=== PATIENT | male | born 1945 | race Caucasian/White ===

== ENCOUNTER 2017-12-13 10:26 | Inpatient (IN) ==
[2017-12-13] MEDS ORDERED: 0.9 % Sodium Chloride 1,000 ML IVC ONE (11:01)
[2017-12-13] MEDS ORDERED: Ondansetron 4 MG/2 ML VIAL IVP ONE (11:01)
[2017-12-13] MEDS ORDERED: Piperacillin/Tazobactam 3.375 GM in 0.9 % Sodium Chloride Mini Bag 100 ML IVPB ONE (11:01)
[2017-12-13] MEDS ORDERED: *HR* FentaNYL (PF) 100 MCG/2 ML VIAL IVP ONE (11:02)
[2017-12-13] MEDS ORDERED: Isovue-370 500 ML INFUS..BTL IV ONE (11:03)
[2017-12-13 11:35] LABS: Basophils # 0.1 K/mcL (0.0-0.2); Basophils % 0.3 %; Eosinophils # 0.1 K/mcL (0.0-0.6); Eosinophils % 0.6 %; Hematocrit 37.6 % (37.5-50.1); Hemoglobin 12.7 g/dL (12.9-16.9); Immature Granulocytes % 0.5 % (0-4); Lymphocytes # 1.5 K/mcL (0.6-4.6); Lymphocytes % 7.4 %; Mean Corpuscular HGB Conc 33.8 g/dL (31.6-35.5); Mean Corpuscular Hemoglobin 31.7 pg (28.0-33.3); Mean Corpuscular Volume 93.8 fL (83.0-100.0); Mean Platelet Volume 9.5 fL (9.4-12.4); Monocytes # 1.8 K/mcL (0.0-1.3); Monocytes % 9.1 %; Neutrophils # 16.5 K/mcL (1.6-8.9); Platelet Count 622 K/mcL (140-400); Red Blood Count 4.01 M/mcL (4.19-5.50); Red Cell Distribution Width 15.8 % (11.5-14.5); Segmented Neutrophils % 82.1 %
[2017-12-13 11:42] LABS: Prothrombin Time 11.4 Seconds (9.4-12.1)
[2017-12-13 11:45] LABS: Activated Partial Thrombo Time 26.8 Seconds (26.0-36.0)
[2017-12-13 11:49] LABS: Alanine Aminotransferase 22 Units/L (7-52); Albumin 2.8 g/dL (3.5-5.7); Albumin/Globulin Ratio 1.3 (1.1-2.2); Alkaline Phosphatase 60 Units/L (34-104); Aspartate Amino Transferase 16 Units/L (13-39); BUN/Creatinine Ratio 12 (6-26); Bilirubin,Direct 0.3 mg/dL (0.0-0.2); Bilirubin,Indirect 0.2 mg/dL (0.0-1.2); Bilirubin,Total 0.5 mg/dL (0.3-1.0); Blood Urea Nitrogen 16 mg/dL (8-23); Calcium 8.4 mg/dL (8.6-10.3); Carbon Dioxide 21 mEq/L (23-29); Chloride 106 mEq/L (98-107); Globulin 2.1 g/dL (2.4-3.5); Glucose 87 mg/dL (70-105); Lipase 46 Units/L (11-82); Osmolality,Calculated 277 (280-300); Potassium 3.9 mEq/L (3.5-5.1); Sodium 133 mEq/L (136-145); Total Protein 4.9 g/dL (6.4-8.9); eGFR For African Americans > 60 (> 60); eGFR For Non-African Americans 51 (> 60)
[2017-12-13 12:22] LABS: Hepatitis B Core IgM Nonreactive (Nonreactive); Hepatitis B Surface Antigen Nonreactive (Nonreactive)
--- NOTE | 2017-12-13 12:25 | Emergency Department Note ---
Disposition Clinical Impression: Colitis Diarrhea Qualifiers: Diarrhea type: unspecified type Qualified Code(s): R19.7 - Diarrhea, unspecified Disposition: Admitted As Inpatient Condition: Fair Forms: ED Satisfaction Letter Time of Disposition: 14:13 General Adult HPI - General Chief complaint: ED Nausea/Vomiting/Diarrhea Stated complaint: "L side abd pain,diarrhea" Time Seen by Provider: 12/13/17 10:33 Source: patient Mode of arrival: ambulatory Limitations: no limitations Nursing Notes Reviewed: Yes Vital Signs Reviewed: Yes - History of Present Illness HPI Narrative: Patient presents emergency room for evaluation of abdominal pain. He was seen 3 weeks ago at an outside facility and diagnosed with colitis. Since then he was treated with antibiotics and then had no follow-up. His pain has been progressively getting worse and his symptoms of been getting worse. He has had uncontrolled diarrhea that is watery and fall smelling. He denies any chest pain shortness of breath headache vision changes nausea or vomiting. Denies any fevers or chills. Denies any trauma or injury since the events prior to. She did complete the antibiotic regiment without any difficulty Onset (ago): week(s) Location: abdomen Radiation: non-radiation Pain Severity: severe Pain Scale: 10 Quality: stabbing, aching Consistency: constant Improves with: nothing Worsens with: nothing Associated symptoms: Reports: loss of appetite, malaise. Denies: chest pain, cough, diaphoresis, fever/chills, headaches, nausea/vomiting, rash, seizure, shortness of breath Treatments Prior to Arrival: none - Related Data Home Medications Medication Instructions Recorded Confirmed Atorvastatin Calcium [Lipitor] 80 mg PO HS 12/13/17 12/13/17 Citalopram Hydrobromide [Celexa] 40 mg PO DAILY 12/13/17 12/13/17 Diphenoxylate/Atropine [Lomotil 1 tab PO QID PRN 12/13/17 12/13/17 2.5 mg/0.025 mg] Docusate Sodium [Dok] 100 mg PO BID 12/13/17 12/13/17 Finasteride [Proscar] 5 mg PO DAILY 12/13/17 12/13/17 Levothyroxine [Synthroid] 175 mcg PO DAILY 12/13/17 12/13/17 Lisinopril [Zestril] 20 mg PO DAILY 12/13/17 12/13/17 Tamsulosin HCl [Flomax] 0.4 mg PO DAILY 12/13/17 12/13/17 Allergies Allergy/AdvReac Type Severity Reaction Status Date / Time levofloxacin [From Levaquin] Allergy See Verified 12/13/17 10:31 Comments All systems ED: reviewed and negative except as stated. Review of Systems: As Per HPI Constitutional: Denies: fever, chills, weakness Cardiovascular: Denies: chest pain, palpitations, dyspnea on exertion, orthopnea , edema Respiratory: Denies: cough, dyspnea, wheezes Gastrointestinal: Reports: abdominal pain, diarrhea. Denies: nausea, vomiting, constipation Genitourinary: Denies: urgency, dysuria Musculoskeletal: Denies: back pain, neck pain Integumentary: Denies: rash Neurological: Denies: headache Past Medical History - Past Medical History Attestation: Yes The following information was validated with the patient. Source: patient Medical history: Reports: diabetes, hepatitis, hyperlipidemia, hypertension, renal disease, thyroid disease Surgical history: Reports: thyroidectomy Psychiatric history: Reports: anxiety - Social History Smoking Status: Current every day smoker Smokeless Tobacco Status: No Alcohol use: Reports: occasionally Drug use: Reports: marijuana Physical Exam - General Limitations: no limitations General appearance: alert, in no apparent distress - Head Head exam: atraumatic, normocephalic, normal inspection - Eye Eye exam: Present: normal appearance, PERRL, EOMI - ENT ENT exam: normal exam, normal oropharynx, mucous membranes moist - Neck Neck exam: Present: normal inspection, full ROM, trachea midline - Respiratory Respiratory exam: Present: normal lung sounds bilaterally - Cardiovascular Cardiovascular exam: Present: regular rate, normal rhythm, normal heart sounds - Abdominal Exam Abdominal exam: Present: soft, tenderness, guarding, normal bowel sounds. Absent: distention, rebound, rigidity, Koo's sign, Rovsing's sign, tenderness at McBurney's Point - Extremities Exam Extremities exam: Present: normal inspection, full ROM, normal capillary refill. Absent: tenderness - Back Exam Back exam: Present: normal inspection - Neurological Exam Neurological exam: Present: alert, oriented X3, CN II-XII intact, normal gait - Skin Skin exam: Present: warm, dry, intact, normal color Course Course Narrative: Patient seen and examined the time of arrival. See history of present illness. 72-year-old male presents emergency room for evaluation of abdominal pain. Patient was seen and evaluated outside facility. Patient had CT imaging and diagnosis of colitis completed there. Since going home is had persistent symptoms including abdominal pain diarrhea profuse tenderness in his abdomen he denies any fevers or chills chest pain shortness of breath headache vision changes or nausea vomiting at this point. Patient has had that is widely diarrhea. Denies any other issues at least at this time. He did complete antibiotic regimen for the outside facility. On presentation here he is alert he is oriented he speaks in full sentences but he does have discomfort and pain in his abdomen. His lungs are clear his heart is regular his abdomen is soft but is tender diffusely worsened left lower quadrant than in the right. He has no rashes or lesions noted at this time. He has no tenderness in the suprapubic region or down into his lower groin or abdomen. Patient was ambulatory coming into the emergency room but does have persistent pain. He has no signs of pitting edema or cellulitis. Patient is concerning for intra- abdominal pathology including diverticular disease, persistent colitis, inflammatory colitis, bowel obstruction or potential perforation. Patient will have chest x-ray EKG labs including CBC chemistry liver function lipase as well as first dose of fluids and antibiotics to be given here. Disposition pending the full workup treatment course evaluation and CT imaging of the abdomen. Clinical evaluation stabilization and evaluated disposition will be determined. - Reevaluation(s) Reevaluation #1: Labs do show significantly elevated white blood cell count. His lactic acid is normal. His renal function is at baseline. He was given fluids here at this time. Antibiotics were given. Disposition pending the full treatment course and symptomatic control. Platelets were 622. Patient does not have a history of splenectomy that we know of at this time. Time: 12:35 Reevaluation #2: Patient's family as well as the patient was informed of the findings discussed the presentation symptoms. Patient has failed outpatient management of colitis. Will be admitted at this time for subhepatic control and evaluation antibiotic regimen. C. difficile culture was sent at this time. The hospitalist Dr. Chaudhry and I reviewed the patient's symptoms presentation history and other recommendations this time. Patient will be admitted for definitive management and evaluation what appears to be persistent inflammatory colitis of unknown etiology. Time: 14:12 Vital Signs Temperature 97.5 F L 12/13/17 10:27 Pulse Rate 67 12/13/17 10:27 Respiratory Rate 12/13/17 10:27 Blood Pressure 112/71 12/13/17 10:27 O2 Sat by Pulse Oximetry 100 12/13/17 10:27 Temperature 97.5 F L 12/13/17 10:41 Pulse Rate 12/13/17 10:41 Respiratory Rate 12/13/17 10:41 Blood Pressure 112/71 12/13/17 10:41 O2 Sat by Pulse Oximetry 12/13/17 10:41 Oxygen Delivery Oxygen Delivery Room Air Medical Decision Making - MDM Narrative Medical decision making narrative: Abdominal pain, diarrhea - Medical Records Medical records reviewed: Yes I reviewed the patient's medical records. - Lab Data Lab results reviewed: Yes I reviewed the patient's lab results. Result diagrams: 12/13/17 11:17 12/13/17 11:17 Lab Results 12/13/17 12/13/17 12/13/17 Range/Units 11:17 11:17 11:17 WBC (4.3-11.1) K/mcL RBC (4.19-5.50) M/mcL Hgb (12.9-16.9) g/dL Hct (37.5-50.1) % MCV (83.0-100.0) fL MCH (28.0-33.3) pg MCHC (31.6-35.5) g/dL RDW (11.5-14.5) % Plt Count (140-400) K/mcL MPV (9.4-12.4) fL Immature Gran % (0-4) % Seg Neutrophils % % Lymphocytes % % Monocytes % % Eosinophils % % Basophils % % Neutrophils # (1.6-8.9) K/mcL Lymphocytes # (0.6-4.6) K/mcL Monocytes # (0.0-1.3) K/mcL Eosinophils # (0.0-0.6) K/mcL Basophils # (0.0-0.2) K/mcL PT 11.4 (9.4-12.1) Seconds INR 1.0 APTT 26.8 (26.0-36.0) Seconds Sodium (136-145) mEq/L Potassium (3.5-5.1) mEq/L Chloride (98-107) mEq/L Carbon Dioxide (23-29) mEq/L BUN (8-23) mg/dL Creatinine (0.70-1.30) mg/dL Est GFR ( Amer) (> 60) Est GFR (Non-Af Amer) (> 60) BUN/Creatinine Ratio (6-26) Glucose (70-105) mg/dL Calculated Osmolality (280-300) Lactic Acid 1.4 (0.5-2.2) mmol/L Calcium (8.6-10.3) mg/dL Total Bilirubin (0.3-1.0) mg/dL Direct Bilirubin (0.0-0.2) mg/dL Indirect Bilirubin (0.0-1.2) mg/dL AST (13-39) Units/L ALT (7-52) Units/L Alkaline Phosphatase (34-104) Units/L Troponin I < 0.03 (< 0.04) ng/mL Serum Total Protein (6.4-8.9) g/dL Albumin (3.5-5.7) g/dL Globulin (2.4-3.5) g/dL Albumin/Globulin Ratio (1.1-2.2) Lipase (11-82) Units/L Urine Color (Yellow) Urine Clarity (Clear) Urine pH (5.0-8.0) pH Units Ur Specific [place] (1.010-1.025) Urine Protein (Neg-Trace) mg/dL Urine Glucose (UA) (Normal) mg/dL Urine Ketones (Negative) mg/dL Urine Blood (Negative) Urine Nitrite (Negative) Urine Bilirubin (Negative) Urine Urobilinogen (Normal) mg/dL Ur Leukocyte Esterase (Negative) Urine Microscopic RBC (0-3) per hpf Urine Microscopic WBC (0-3) per hpf Ur Squamous Epith Cells (None-Few) per lpf Urine Bacteria (None-Few) per hpf Hyaline Casts (None-Few) per lpf Ur Culture Indicated? (NO) Hep Bs Antigen (Nonreactive) Hep B Core IgM Ab (Nonreactive) 12/13/17 12/13/17 12/13/17 Range/Units 11:17 11:17 11:17 WBC 20.2 H (4.3-11.1) K/mcL RBC 4.01 L (4.19-5.50) M/mcL Hgb 12.7 L (12.9-16.9) g/dL Hct 37.6 (37.5-50.1) % MCV 93.8 (83.0-100.0) fL MCH 31.7 (28.0-33.3) pg MCHC 33.8 (31.6-35.5) g/dL RDW 15.8 H (11.5-14.5) % Plt Count 622 H (140-400) K/mcL MPV 9.5 (9.4-12.4) fL Immature Gran % 0.5 (0-4) % Seg Neutrophils % 82.1 % Lymphocytes % 7.4 % Monocytes % 9.1 % Eosinophils % 0.6 % Basophils % 0.3 % Neutrophils # 16.5 H (1.6-8.9) K/mcL Lymphocytes # 1.5 (0.6-4.6) K/mcL Monocytes # 1.8 H (0.0-1.3) K/mcL Eosinophils # 0.1 (0.0-0.6) K/mcL Basophils # 0.1 (0.0-0.2) K/mcL PT (9.4-12.1) Seconds INR APTT (26.0-36.0) Seconds Sodium 133 L (136-145) mEq/L Potassium 3.9 (3.5-5.1) mEq/L Chloride 106 (98-107) mEq/L Carbon Dioxide 21 L (23-29) mEq/L BUN 16 (8-23) mg/dL Creatinine 1.37 H (0.70-1.30) mg/dL Est GFR ( Amer) > 60 (> 60) Est GFR (Non-Af Amer) 51 L (> 60) BUN/Creatinine Ratio 12 (6-26) Glucose 87 (70-105) mg/dL Calculated Osmolality 277 L (280-300) Lactic Acid (0.5-2.2) mmol/L Calcium 8.4 L (8.6-10.3) mg/dL Total Bilirubin 0.5 (0.3-1.0) mg/dL Direct Bilirubin 0.3 H (0.0-0.2) mg/dL Indirect Bilirubin 0.2 (0.0-1.2) mg/dL AST 16 (13-39) Units/L ALT 22 (7-52) Units/L Alkaline Phosphatase 60 (34-104) Units/L Troponin I (< 0.04) ng/mL Serum Total Protein 4.9 L (6.4-8.9) g/dL Albumin 2.8 L (3.5-5.7) g/dL Globulin 2.1 L (2.4-3.5) g/dL Albumin/Globulin Ratio 1.3 (1.1-2.2) Lipase 46 (11-82) Units/L Urine Color (Yellow) Urine Clarity (Clear) Urine pH (5.0-8.0) pH Units Ur Specific [place] (1.010-1.025) Urine Protein (Neg-Trace) mg/dL Urine Glucose (UA) (Normal) mg/dL Urine Ketones (Negative) mg/dL Urine Blood (Negative) Urine Nitrite (Negative) Urine Bilirubin (Negative) Urine Urobilinogen (Normal) mg/dL Ur Leukocyte Esterase (Negative) Urine Microscopic RBC (0-3) per hpf Urine Microscopic WBC (0-3) per hpf Ur Squamous Epith Cells (None-Few) per lpf Urine Bacteria (None-Few) per hpf Hyaline Casts (None-Few) per lpf Ur Culture Indicated? (NO) Hep Bs Antigen Nonreactive (Nonreactive) Hep B Core IgM Ab Nonreactive (Nonreactive) 12/13/17 Range/Units 13:00 WBC (4.3-11.1) K/mcL RBC (4.19-5.50) M/mcL Hgb (12.9-16.9) g/dL Hct (37.5-50.1) % MCV (83.0-100.0) fL MCH (28.0-33.3) pg MCHC (31.6-35.5) g/dL RDW (11.5-14.5) % Plt Count (140-400) K/mcL MPV (9.4-12.4) fL Immature Gran % (0-4) % Seg Neutrophils % % Lymphocytes % % Monocytes % % Eosinophils % % Basophils % % Neutrophils # (1.6-8.9) K/mcL Lymphocytes # (0.6-4.6) K/mcL Monocytes # (0.0-1.3) K/mcL Eosinophils # (0.0-0.6) K/mcL Basophils # (0.0-0.2) K/mcL PT (9.4-12.1) Seconds INR APTT (26.0-36.0) Seconds Sodium (136-145) mEq/L Potassium (3.5-5.1) mEq/L Chloride (98-107) mEq/L Carbon Dioxide (23-29) mEq/L BUN (8-23) mg/dL Creatinine (0.70-1.30) mg/dL Est GFR ( Amer) (> 60) Est GFR (Non-Af Amer) (> 60) BUN/Creatinine Ratio (6-26) Glucose (70-105) mg/dL Calculated Osmolality (280-300) Lactic Acid (0.5-2.2) mmol/L Calcium (8.6-10.3) mg/dL Total Bilirubin (0.3-1.0) mg/dL Direct Bilirubin (0.0-0.2) mg/dL Indirect Bilirubin (0.0-1.2) mg/dL AST (13-39) Units/L ALT (7-52) Units/L Alkaline Phosphatase (34-104) Units/L Troponin I (< 0.04) ng/mL Serum Total Protein (6.4-8.9) g/dL Albumin (3.5-5.7) g/dL Globulin (2.4-3.5) g/dL Albumin/Globulin Ratio (1.1-2.2) Lipase (11-82) Units/L Urine Color Yellow (Yellow) Urine Clarity Clear (Clear) Urine pH 6.0 (5.0-8.0) pH Units Ur Specific [place] 1.022 (1.010-1.025) Urine Protein Trace (Neg-Trace) mg/dL Urine Glucose (UA) Normal (Normal) mg/dL Urine Ketones Negative (Negative) mg/dL Urine Blood Negative (Negative) Urine Nitrite Negative (Negative) Urine Bilirubin Negative (Negative) Urine Urobilinogen Normal (Normal) mg/dL Ur Leukocyte Esterase Negative (Negative) Urine Microscopic RBC 3-5 H (0-3) per hpf Urine Microscopic WBC 0-3 (0-3) per hpf Ur Squamous Epith Cells Few (None-Few) per lpf Urine Bacteria None Seen (None-Few) per hpf Hyaline Casts None Seen (None-Few) per lpf Ur Culture Indicated? NO (NO) Hep Bs Antigen (Nonreactive) Hep B Core IgM Ab (Nonreactive) - Radiology Data Radiology results reviewed: Yes I reviewed the patient's radiology results. Chest x-ray does not show any acute pathology based on evaluation. ET scan confirms inflammatory colitis of unknown etiology with no other acute intra-abdominal pathology. - EKG Data EKG #1 EKG attestation: Yes I reviewed and interpreted this EKG. EKG results narrative: EKG shows sinus rhythm. Bradycardic rate at ventricular rate of 59. MN interval 142. QRS duration 103. QTC of 424. No acute signs of ST segment elevation or abnormality. No previous EKG for evaluation of this time. No acute signs of WPW or Brugada syndrome.
[2017-12-13 13:10] LABS: Bilirubin,Urine Negative (Negative); Blood,Urine Negative (Negative); Clarity,Urine Clear (Clear); Color,Urine Yellow (Yellow); Glucose,Urine (UA) Normal (Normal); Ketones,Urine Negative (Negative); Leukocyte Esterase,Urine Negative (Negative); Nitrite,Urine Negative (Negative); Protein,Urine Trace mg/dL (Neg-Trace); Specific Gravity,Urine 1.022 (1.010-1.025); Urobilinogen,Urine Normal (Normal)
[2017-12-13 13:15] LABS: Bacteria,Urine None Seen per hpf (None-Few); Hyaline Casts,Urine None Seen per lpf (None-Few); Squamous Epithelial Cell,Urine Few per lpf (None-Few); WBC,Urine 0-3 per hpf (0-3)
[2017-12-13] MEDS: 0.9 % Sodium Chloride 1,000 ML IVC SCH (16:04)
[2017-12-13] MEDS ORDERED: Naloxone 0.4 MG/ML INJ IVP PRN (16:06)
[2017-12-13] MEDS: Vancomycin Oral Soln 125 MG/2.5 ML UDC PO SCH ×2 (16:56→20:10)
--- NOTE | 2017-12-13 17:31 | Electrocardiograph Report ---
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
--- NOTE | 2017-12-13 18:17 | Internal Med History&Physical ---
Date of Encounter: 12/13/17 Time of Encounter: 14:30 Internal Medicine - H&P: HPI Chief complaint: diarrhea Admitted From: Home Plans for Post Hospital Care: Home History of present illness: Mr. Lennon is a 72 year old male with PMHx of DM, HTN, HLD, BPH, CKD, presented to the ED with unresolving diarrhea. It first started back in 11/23 after which he was seen in [facility] on 11/28. There is no report available from that visit but he states that he had CT scan done which showed colitis and was discharged home on PO Bactrim/flagyl. Prior to the ED visit, he had collected a stool testing kit from his PCP which he used on 12/07 after he finished a course of abx. He was informed that the test results were unremarkable but diarrhea did not resolve hence decided to come to the ED. No blood in diarrhea or mucus. Associated with intermittent, LLQ pain. Non-radiating, sharp in nature, no aggravating/relieving factors. Denies fever/chills, N/V, dysuria, or hematuria. No travel history. Initial labs showed leukocytosis. Cr was around his baseline. Lipase normal, urinalysis -ve for LE, nitrite. CT scan showed stable colitis. He was given IV zosyn and fentanyl then admitted for further management. Past Med Surg Social Fam HX - Past Medical History Medical history: diabetes, hepatitis, hyperlipidemia, hypertension, renal disease, thyroid disease Additional medical history: BPH, anxiety, depression Psychiatric history: anxiety - Past Surgical History Surgical History: thyroidectomy Additional surgical history: right knee scope. Diverticulosis diagnosed with recent colonoscopy - Social History Smoking Status: Current every day smoker Packs per day: 1 Smokeless Tobacco Status: No Alcohol use: occasionally Drug use: marijuana Current living situation: Home - Independent Activity Level: Independent ambulation Recent Out of Country Travel Within the Last 8 Weeks: No - Family History Mother Hx Family GI Disorders: No Father Hx Family GI Disorders: No Internal Medicine - H&P: Meds Atorvastatin Calcium [Lipitor] 80 mg PO HS 12/13/17 [History] Citalopram Hydrobromide [Celexa] 40 mg PO DAILY 12/13/17 [History] Diphenoxylate/Atropine [Lomotil 2.5 mg/0.025 mg] 1 tab PO QID PRN 12/13/17 [ History] Docusate Sodium [Dok] 100 mg PO BID 12/13/17 [History] Finasteride [Proscar] 5 mg PO DAILY 12/13/17 [History] Levothyroxine [Synthroid] 175 mcg PO DAILY 12/13/17 [History] Lisinopril [Zestril] 20 mg PO DAILY 12/13/17 [History] Tamsulosin HCl [Flomax] 0.4 mg PO DAILY 12/13/17 [History] 3 Allergy/AdvReac Type Severity Reaction Status Date / Time levofloxacin [From Levaquin] Allergy See Verified 12/13/17 10:31 Comments All Systems PM: A 10-system review of systems was performed and is negative for pertinent findings except as documented above in the HPI. - Constitutional Vitals: Temp Pulse Resp BP Pulse Ox 97.5 F L 62 16 125/66 100 12/13/17 15:36 12/13/17 15:36 12/13/17 15:36 12/13/17 15:36 12/13/17 15:36 Exam: General: Alert and oriented HEENT:EOM, pupils equal, round, and reactive. Cardiovascular:Normal S1 & S2, no murmurs or gallops. No JVD. Pulse regular. Lungs:Normal breath sounds, no wheezes or crackles. Abdomen:Soft, mild LLQ tenderness without rigidity/rebound tenderness. Bowel sounds active Extremities:No deformity, no edema or tenderness, no joint swelling. Neurological:Normal cognition and motor skills. Skin:Normal color, no rash, no lesions. Pulses:Carotid and radial pulses normal +2. Rest of the physical exam is non-contributory Internal Med - H&P Results - Labs CBC & Chem 7: 12/13/17 11:17 12/13/17 11:17 - EKG Data -: EKG Interpreted by Myself EKG shows normal: sinus rhythm - Diagnostic Studies CT scan - abdomen Additional comments: Stable colitis - VTE Reasons for not Prescribing Prophylaxis: Treatment not Indicated - Low risk for VTE - Assessment and plan (1) C. difficile colitis Current Visit: Yes Status: Acute Assessment and plan: Discussed the previous stool test dated 12/07 with microbiology -> The interpretation is that C diff Tox B gene was positive which was verified on reflex C diff Tox A/B PCR Start PO Vanc 125mg QID clear liquid diet today -> advance as tolerated Will try tramadol for pain management as pt is not vomiting d/c IV Zosyn (2) CKD (chronic kidney disease) stage 3, GFR 30-59 ml/min Current Visit: Yes Status: Acute Assessment and plan: Cr at his baseline Received IV contrast for CT abdo/pelvis today Will continue IVF for today (3) Hypertension Current Visit: Yes Status: Chronic Assessment and plan: continue lisinopril Qualifiers: Hypertension type: essential hypertension Qualified Code(s): I10 - Essential (primary) hypertension (4) BPH (benign prostatic hyperplasia) Current Visit: Yes Status: Acute Assessment and plan: Continue proscar and flomax Qualifiers: Lower urinary tract symptom presence: unspecified whether lower urinary tract symptoms present Qualified Code(s): N40.0 - Benign prostatic hyperplasia without lower urinary tract symptoms (5) Hypothyroidism Current Visit: Yes Status: Acute Assessment and plan: continue levothyroxine Qualifiers: Hypothyroidism type: unspecified Qualified Code(s): E03.9 - Hypothyroidism , unspecified - Time Spent With Patient Total time spent is greater than 50% in coordination of care (as documented) at patient's floor/unit and/or counseling patient:
[2017-12-13] MEDS: traMADol 50 MG TABLET PO PRN (20:10)
[2017-12-14 02:03] LABS: Basophils # 0.1 K/mcL (0.0-0.2); Basophils % 0.4 %; Eosinophils # 0.2 K/mcL (0.0-0.6); Eosinophils % 1.1 %; Hematocrit 32.8 % (37.5-50.1); Immature Granulocytes % 0.5 % (0-4); Lymphocytes # 1.8 K/mcL (0.6-4.6); Lymphocytes % 10.8 %; Mean Corpuscular HGB Conc 33.5 g/dL (31.6-35.5); Mean Corpuscular Hemoglobin 31.6 pg (28.0-33.3); Mean Corpuscular Volume 94.3 fL (83.0-100.0); Mean Platelet Volume 9.9 fL (9.4-12.4); Monocytes # 1.9 K/mcL (0.0-1.3); Monocytes % 11.8 %; Neutrophils # 12.3 K/mcL (1.6-8.9); Platelet Count 565 K/mcL (140-400); Red Blood Count 3.48 M/mcL (4.19-5.50); Segmented Neutrophils % 75.4 %
[2017-12-14 02:25] LABS: BUN/Creatinine Ratio 10 (6-26); Blood Urea Nitrogen 14 mg/dL (8-23); Calcium 7.7 mg/dL (8.6-10.3); Carbon Dioxide 22 mEq/L (23-29); Chloride 109 mEq/L (98-107); Glucose 87 mg/dL (70-105); Magnesium 1.7 mg/dL (1.6-2.6); Osmolality,Calculated 282 (280-300); Potassium 3.8 mEq/L (3.5-5.1); Sodium 136 mEq/L (136-145); eGFR For African Americans > 60 (> 60); eGFR For Non-African Americans 52 (> 60)
[2017-12-14 03:22] LABS: Hepatitis A Antibody IgM Nonreactive (Nonreactive); Hepatitis C Virus Antibody Nonreactive (Nonreactive)
[2017-12-14] MEDS: traMADol 50 MG TABLET PO PRN ×3 (08:40→23:42)
[2017-12-14] MEDS: Lisinopril 20 MG TABLET PO SCH (08:40)
[2017-12-14] MEDS: Finasteride 5 MG TABLET PO SCH (08:41)
[2017-12-14] MEDS: Vancomycin Oral Soln 125 MG/2.5 ML UDC PO SCH ×4 (08:41→21:13)
[2017-12-14] MEDS: 0.9 % Sodium Chloride 1,000 ML IVC SCH ×2 (11:53→21:14)
--- NOTE | 2017-12-14 20:37 | Internal Med Progress Note ---
Date of Encounter: 12/14/17 Time of Encounter: 20:37 - Assessment and plan (1) C. difficile colitis Current Visit: Yes Status: Acute (2) Hypertensive renal disease with renal failure Current Visit: Yes Status: Acute (3) Hypothyroidism Current Visit: Yes Status: Chronic Qualifiers: Hypothyroidism type: unspecified Qualified Code(s): E03.9 - Hypothyroidism , unspecified (4) BPH (benign prostatic hyperplasia) Current Visit: Yes Status: Chronic Qualifiers: Lower urinary tract symptom presence: unspecified whether lower urinary tract symptoms present Qualified Code(s): N40.0 - Benign prostatic hyperplasia without lower urinary tract symptoms - Time Spent With Patient Total time spent is greater than 50% in coordination of care (as documented) at patient's floor/unit and/or counseling patient: 25 - 35 minutes - Subjective Interval history: .. The patient feels better. Her diarrhea is of decreased frequency. The liquid stool seems to be thicker. She has not seen any blood there. She does have mild diffuse abdominal discomfort. Denies nausea and vomiting. Denies chest pain. Denies difficulty breathing, coughing and wheezing. She has normal urination. OBJECTIVE: .. Skin: Free of rash and discoloration ENMT: Oral/pharyngeal mucosa is normal in appearance. Eyes: Sclera is white. There is no discharge from eyes. Respiratory: Normal breath sounds; no crackles or wheezes. CV: Heart is regular; no gallop or murmur. GI: Abdomen is soft and not tender. There is no palpable mass or visceromegaly. Neuro: There is no focal deficits. ASSESSMENT AND PLAN: .. C. difficile colitis. Better. We will continue oral vancomycin. Will start clear liquids diet. Hypertensive renal disease with renal failure. Her blood pressure is under control. We will continue lisinopril. Hypothyroidism. Clinically under control. We will continue Synthroid. BPH, without obstruction. We will continue Proscar. CBC and BMP in the morning. Disposition: If she keeps improving' we will consider to discharge her home tomorrow late afternoon. - Constitutional Vitals: Temp Pulse Resp BP Pulse Ox 98.0 F 56 17 114/59 98 12/14/17 18:33 12/14/17 18:33 12/14/17 18:33 12/14/17 18:33 12/14/17 18:33 Internal Medicine: Result - Labs CBC & Chem 7: 12/14/17 01:07 12/14/17 01:07 Labs: Short CBC 12/14/17 Range/Units 01:07 WBC 16.3 H (4.3-11.1) K/mcL Hgb 11.0 L D (12.9-16.9) g/dL Hct 32.8 L (37.5-50.1) % Plt Count 565 H (140-400) K/mcL Neutrophils # 12.3 H (1.6-8.9) K/mcL BMP 12/14/17 01:07 Sodium 136 Potassium 3.8 Chloride 109 H Carbon Dioxide 22 L BUN 14 Creatinine 1.36 H Glucose 87 Calcium 7.7 L - ABG Interpretation ABG results: PT/INR, D-dimer PT 11.4 Seconds (9.4-12.1) 12/13/17 11:17 - VTE Reasons for not Prescribing Prophylaxis: Treatment not Indicated - Low risk for VTE Consult Discharge Plan - Plan Referrals: La Monroe MD [Primary Care Provider] -
[2017-12-15] MEDS: 0.9 % Sodium Chloride 1,000 ML IVC SCH ×2 (06:35→17:20)
[2017-12-15 06:51] LABS: Basophils # 0.1 K/mcL (0.0-0.2); Basophils % 0.7 %; Eosinophils # 0.2 K/mcL (0.0-0.6); Eosinophils % 1.5 %; Hematocrit 33.5 % (37.5-50.1); Hemoglobin 11.3 g/dL (12.9-16.9); Immature Granulocytes % 0.4 % (0-4); Lymphocytes # 1.6 K/mcL (0.6-4.6); Lymphocytes % 12.1 %; Mean Corpuscular HGB Conc 33.7 g/dL (31.6-35.5); Mean Corpuscular Volume 94.9 fL (83.0-100.0); Mean Platelet Volume 9.7 fL (9.4-12.4); Monocytes # 1.8 K/mcL (0.0-1.3); Monocytes % 14.3 %; Neutrophils # 9.2 K/mcL (1.6-8.9); Platelet Count 527 K/mcL (140-400); Red Blood Count 3.53 M/mcL (4.19-5.50); Red Cell Distribution Width 16.1 % (11.5-14.5)
[2017-12-15 07:10] LABS: BUN/Creatinine Ratio 7 (6-26); Blood Urea Nitrogen 9 mg/dL (8-23); Calcium 7.7 mg/dL (8.6-10.3); Carbon Dioxide 23 mEq/L (23-29); Chloride 110 mEq/L (98-107); Glucose 91 mg/dL (70-105); Magnesium 1.6 mg/dL (1.6-2.6); Osmolality,Calculated 282 (280-300); Potassium 3.9 mEq/L (3.5-5.1); Sodium 137 mEq/L (136-145); eGFR For African Americans > 60 (> 60); eGFR For Non-African Americans 56 (> 60)
[2017-12-15] MEDS: Lisinopril 20 MG TABLET PO SCH (09:06)
[2017-12-15] MEDS: Finasteride 5 MG TABLET PO SCH (09:06)
[2017-12-15] MEDS: traMADol 50 MG TABLET PO PRN ×2 (09:07→17:26)
[2017-12-15] MEDS: Vancomycin Oral Soln 125 MG/2.5 ML UDC PO SCH ×3 (09:07→17:21)
[2017-12-15 14:26] VITALS: BP 133/71
--- NOTE | 2017-12-15 18:06 | Internal Med Progress Note ---
Date of Encounter: 12/15/17 Time of Encounter: 18:05 - Assessment and plan (1) C. difficile colitis Current Visit: Yes Status: Acute (2) Hypertensive renal disease with renal failure Current Visit: Yes Status: Acute (3) Hypothyroidism Current Visit: Yes Status: Chronic Qualifiers: Hypothyroidism type: unspecified Qualified Code(s): E03.9 - Hypothyroidism , unspecified (4) BPH (benign prostatic hyperplasia) Current Visit: Yes Status: Chronic Qualifiers: Lower urinary tract symptom presence: unspecified whether lower urinary tract symptoms present Qualified Code(s): N40.0 - Benign prostatic hyperplasia without lower urinary tract symptoms - Time Spent With Patient Total time spent is greater than 50% in coordination of care (as documented) at patient's floor/unit and/or counseling patient: - Subjective Interval history: .. The patient feels better. Her diarrhea is of decreased frequency. The liquid stool seems to be thicker. She has not seen any blood there. She does have mild diffuse abdominal discomfort. Denies nausea and vomiting. Denies chest pain. Denies difficulty breathing, coughing and wheezing. She has normal urination. OBJECTIVE: .. Skin: Free of rash and discoloration ENMT: Oral/pharyngeal mucosa is normal in appearance. Eyes: Sclera is white. There is no discharge from eyes. Respiratory: Normal breath sounds; no crackles or wheezes. CV: Heart is regular; no gallop or murmur. GI: Abdomen is soft and not tender. There is no palpable mass or visceromegaly. Neuro: There is no focal deficits. ASSESSMENT AND PLAN: .. C. difficile colitis. Better. We will continue oral vancomycin. Will start clear liquids diet. Hypertensive renal disease with renal failure. Her blood pressure is under control. We will continue lisinopril. Hypothyroidism. Clinically under control. We will continue Synthroid. BPH, without obstruction. We will continue Proscar. CBC and BMP in the morning. Disposition: If she keeps improving' we will consider to discharge her home tomorrow late afternoon. - Constitutional Vitals: Temp Pulse Resp BP Pulse Ox 98.4 F 58 15 133/71 97 12/15/17 14:20 12/15/17 14:20 12/15/17 14:20 12/15/17 14:20 12/15/17 14:20 Internal Medicine: Result - Labs CBC & Chem 7: 12/15/17 06:26 12/15/17 06:26 Labs: Short CBC 12/15/17 Range/Units 06:26 WBC 12.9 H (4.3-11.1) K/mcL Hgb 11.3 L (12.9-16.9) g/dL Hct 33.5 L (37.5-50.1) % Plt Count 527 H (140-400) K/mcL Neutrophils # 9.2 H (1.6-8.9) K/mcL BMP 12/15/17 06:26 Sodium 137 Potassium 3.9 Chloride 110 H Carbon Dioxide 23 BUN 9 Creatinine 1.27 Glucose 91 Calcium 7.7 L - ABG Interpretation ABG results: PT/INR, D-dimer PT 11.4 Seconds (9.4-12.1) 12/13/17 11:17 - VTE Reasons for not Prescribing Prophylaxis: Treatment not Indicated - Low risk for VTE Consult Discharge Plan - Plan Referrals: La Monroe MD [Primary Care Provider] -
--- NOTE | 2017-12-15 18:20 | Discharge Summary ---
Date of Encounter: 12/15/17 Time of Encounter: 18:12 - Discharge Diagnosis (1) C. difficile colitis Priority: Primary Status: Acute (2) Hypertensive renal disease with renal failure Priority: Secondary Status: Chronic (3) Hypothyroidism Priority: Secondary Status: Chronic Qualifiers: Hypothyroidism type: unspecified Qualified Code(s): E03.9 - Hypothyroidism , unspecified (4) BPH (benign prostatic hyperplasia) Priority: Secondary Status: Chronic Qualifiers: Lower urinary tract symptom presence: unspecified whether lower urinary tract symptoms present Qualified Code(s): N40.0 - Benign prostatic hyperplasia without lower urinary tract symptoms Hospital course: Mr. Lennon is a 72 year old male. We admitted man with unresolving diarrhea. It started around November 23. 5 days later she was seen in an emergency room. They did CT of abdomen and pelvisit showed colitis. They sent her home on by mouth Bactrim/Flagyl. On December 07 she had stool testing for C. difficile. It was initially reported as negative. It was found positive by us on the day of this admission. We offered her any by mouth diet with IV fluids. We started her on by mouth vancomycin. She got quickly better. On the very same day we started her on clear liquids. 2 days later (on the day of discharge) we started her on soft diet (chopped meat). She feels good today. Denies abdominal pain, nausea and vomiting. No bowel movements today. Denies chest pain. He denies difficulty breathing, coughing and wheezing. I am discharging her home today. She will complete 14 days of by mouth vancomycin. See discharge orders. Discharge discussed with: patient - Time Spent with Patient Total time spent providing and/or coordinating discharge services: Greater than 30 minutes (40 minutes) - Discharge Medications Prescriptions: Vancomycin Oral Soln [Firvanq] 125 mg PO QID 12 Days #120 ml Home Medications: Atorvastatin Calcium [Lipitor] 80 mg PO HS 12/13/17 [History] Citalopram Hydrobromide [Celexa] 40 mg PO DAILY 12/13/17 [History] Finasteride [Proscar] 5 mg PO DAILY 12/13/17 [History] Levothyroxine [Synthroid] 175 mcg PO DAILY 12/13/17 [History] Lisinopril [Zestril] 20 mg PO DAILY 12/13/17 [History] Tamsulosin HCl [Flomax] 0.4 mg PO DAILY 12/13/17 [History] Vancomycin Oral Soln [Firvanq] 125 mg PO QID 12 Days #120 ml 12/15/17 [Rx] Allergies/Adverse Reactions: 3 Allergy/AdvReac Type Severity Reaction Status Date / Time levofloxacin [From Levaquin] Allergy See Verified 12/13/17 10:31 Comments Date of admission: 12/13/17 16:06 Primary care physician: La Monroe Discharging clinician: Jim Farnsworth Anticipated date of discharge: 12/15/17 - Constitutional Vitals: Temp Pulse Resp BP Pulse Ox 98.4 F 58 15 133/71 97 12/15/17 14:20 12/15/17 14:20 12/15/17 14:20 12/15/17 14:20 12/15/17 14:20 General appearance: Present: pleasant, no acute distress, answers questions appropriately - Respiratory Respiratory exam: Present: CTAB. Absent: accessory muscle use, rales, rhonchi, wheezes - Cardiovascular Cardiovascular exam: Present: RRR, +S1, +S2. Absent: diastolic murmur, gallop, rubs, systolic murmur - GI/Abdominal GI/Abdominal exam: Present: normal bowel sounds, soft, no peritoneal signs. Absent: distended, tenderness - Patient Status Disposition: Home, Self-Care Condition: Fair Functional capacity at discharge: independent ambulation Overall status at discharge: patient is progressing back to baseline - Discharge Instructions Instructions: Clostridium Difficile Infection (DC) Follow Up With: La Monroe MD [Primary Care Provider] - 12/22/17 7:00 pm - Diet and Activity Activity: resume usual activities as tolerated - VTE Reasons for not Prescribing Prophylaxis: Treatment not Indicated - Low risk for VTE Deep Vein Thrombosis/Pulmonary Embolism Present on Admission: No
== END 2017-12-15 19:45 | disposition home or self-care (01) | DRG 373 ==
LOC: 3ANU 10:26 → EMEROO 10:26 → 3ANU 15:08 → SUATTDRO 16:06
PROVIDERS: ADMIT Student in an Organized Health Care Education/Training Program; ATTEND Internal Medicine